=== PATIENT | male | born 1965 | race African-American/Black ===

== ENCOUNTER 2019-03-13 02:42 | Inpatient (IN) ==
[2019-03-13 03:33] LABS: Basophils % 0.6 %; Eosinophils % 0.9 %; Hematocrit 43.1 % (37.5-50.1); Hemoglobin 15.3 g/dL (12.9-16.9); Immature Granulocytes % 0.2 % (0-4); Lymphocytes # 1.3 K/mcL (0.6-4.6); Lymphocytes % 28.4 %; Mean Corpuscular HGB Conc 35.5 g/dL (31.6-35.5); Mean Corpuscular Hemoglobin 31.5 pg (28.0-33.3); Mean Corpuscular Volume 88.9 fL (83.0-100.0); Mean Platelet Volume 9.6 fL (9.4-12.4); Monocytes # 0.3 K/mcL (0.0-1.3); Platelet Count 218 K/mcL (140-400); Red Blood Count 4.85 M/mcL (4.19-5.50); Red Cell Distribution Width 12.1 % (11.5-14.5); Segmented Neutrophils % 62.9 %; White Blood Count 4.7 K/mcL (4.3-11.1)
[2019-03-13 03:43] LABS: Acetaminophen < 10 mcg/mL (10-20); BUN/Creatinine Ratio 12 (6-26); Blood Urea Nitrogen 13 mg/dL (6-20); Calcium 9.7 mg/dL (8.6-10.3); Carbon Dioxide 24 mEq/L (23-29); Chloride 106 mEq/L (98-107); Ethanol 36 mg/dL (Less than 10); Glucose 95 mg/dL (70-105); Osmolality,Calculated 288 (280-300); Potassium 3.5 mEq/L (3.5-5.1); Salicylate < 2.5 mg/dL (15.0-30.0); Sodium 139 mEq/L (136-145); eGFR For African Americans > 60 (> 60); eGFR For Non-African Americans > 60 (> 60)
[2019-03-13 04:20] LABS: Amphetamine Screen,Urine Negative ng/mL (Cutoff=1000); Barbiturate Screen,Urine Negative ng/mL (Cutoff=200); Benzodiazepines Screen,Urine Negative ng/mL (Cutoff=200); Cannabinoid Screen,Urine Negative ng/mL (Cutoff = 50); Cocaine Screen,Urine Positive ng/mL (Cutoff= 300); Opiate Screen,Urine Negative ng/mL (Cutoff=300); Phencyclidine Screen,Urine Negative ng/mL (Cutoff=25)
[2019-03-13 04:49] LABS: Bilirubin,Urine Negative (Negative); Clarity,Urine Clear (Clear); Color,Urine Yellow (Yellow); Glucose,Urine (UA) Normal (Normal); Ketones,Urine Negative (Negative)
[2019-03-13 04:50] LABS: Blood,Urine Trace (Negative); Leukocyte Esterase,Urine Moderate (Negative); Nitrite,Urine Negative (Negative); Protein,Urine Negative (Neg-Trace); Specific Gravity,Urine 1.014 (1.010-1.025); Urobilinogen,Urine Normal (Normal)
[2019-03-13 04:57] LABS: Bacteria,Urine Few per hpf (None-Few); Squamous Epithelial Cell,Urine Few per lpf (None-Few)
[2019-03-13] MEDS ORDERED: Haloperidol Lactate 5 MG/ML VIAL IM PRN (11:03)
[2019-03-13] MEDS ORDERED: Acetaminophen 325 MG TABLET PO PRN (11:03)
[2019-03-13] MEDS ORDERED: traZODone 50 MG TABLET PO PRN (11:03)
[2019-03-13] MEDS ORDERED: *HR* LORazepam 2 MG/ML VIAL IM PRN (11:03)
[2019-03-13] MEDS ORDERED: *HR* LORazepam 1 MG TABLET PO PRN (11:03)
[2019-03-13] MEDS ORDERED: Mag Hydrox/Al Hydrox/Simeth 30 ML UDC PO PRN (11:03)
[2019-03-13] MEDS ORDERED: MOM Conc 10 ML UD.LIQ PO PRN (11:03)
[2019-03-13] MEDS ORDERED: hydrOXYzine pamoate 25 MG CAPSULE PO PRN (11:03)
[2019-03-13] MEDS ORDERED: Ibuprofen 400 MG TABLET PO PRN (11:03)
[2019-03-13] MEDS: Nicotine 14 MG PATCH.TD24 TD SCH (12:45)
[2019-03-14 08:47] VITALS: BP 132/80
[2019-03-14] MEDS: Nicotine 14 MG PATCH.TD24 TD SCH (09:51)
== END 2019-03-14 17:10 | DRG 882 ==
LOC: EMEROOARM 02:42 → 1ANU 10:05
PROVIDERS: ADMIT Psychiatry & Neurology Psychiatry; ATTEND Psychiatry & Neurology Psychiatry